=== PATIENT | female | born 2000 | race Caucasian/White ===

== ENCOUNTER → 2024-11-18 | Outpatient (CLI) | payer OTHER, SELFPAY ==
[2024-11-18 13:08] LABS: hCG Titer Quant., Serum < 1 mIU/mL (<9 non-preg)
== END | disposition home or self-care (01) ==
LOC: VSLAB 08:47
PROVIDERS: PCP Family Medicine; Visit Provider Family Medicine
DX: N91.0 Primary amenorrhea (principal)
CPT/HCPCS: 36415; 84702

== ENCOUNTER → 2025-02-21 | Outpatient (CLI) | payer OTHER, SELFPAY ==
[2025-02-24 07:07] LABS: Chlamydia By Nucleic Acid AMP Negative (Negative); Gonococcus By Nucleic Acid AMP Negative (Negative)
== END | disposition home or self-care (01) ==
LOC: LABSPEC 16:24
PROVIDERS: PCP Family Medicine; Visit Provider Obstetrics & Gynecology
DX: O09.90 Supervision of high risk pregnancy, unspecified, unspecified trimester (principal); Z3A.00 Weeks of gestation of pregnancy not specified
CPT/HCPCS: 87077; 87086; 87088; 87186; 87491; 87591

== ENCOUNTER → 2025-03-03 | Outpatient (CLI) | payer OTHER, SELFPAY ==
[2025-03-03 12:27] LABS: Hematocrit 39.0 % (37-47); Hemoglobin 13.5 g/dL (12.0-15.0); Immature Granulocytes Count 0.020 X10^3/uL (0.0-0.0); Mean Corp Hgb Conc 34.6 g/dL (32-36); Mean Corpuscular Volume 85.5 fL (81-99); Mean Platelet Vol. 10.1 fl (6.2-12.0); NRBC Flagged by Analyzer 0 % (0-5); Platelet Count 236 K/mm3 (150-450); RBC Distribution Width CV 11.7 % (11.6-14.6); RBC Distribution Width SD 36.1 fl (35.1-43.9); Red Blood Count 4.56 M/mm3 (4.2-5.4); White Blood Count 8.5 K/mm3 (4.4-11.0)
[2025-03-03 13:38] LABS: HIV Nonreactive (Nonreactive); Hepatitis B Surface Antigen Nonreactive (Nonreactive); Hepatitis C Antibody Nonreactive (Nonreactive); Syphilis Antibodies Nonreactive (Nonreactive)
--- OUTSIDE RECORDS SUMMARY | 2025-03-03 17:01 | XMS RPT_ITS | CCD ---
Author Organization [facility] Care Team Providers Care Systems Integration Analyst Name Role Phone Generic Provider MD, No Assigned Pcp Primary Car e Provider Unavailable ROMELIA AYALA Attending Unavailable GENERIC PROVIDER, NO ASSIGNED PCP Primary Care Unavailable ROMELIA AYALA Attending Unavailable GENERIC PROVIDER, NO ASSIGNED PCP Primary Care Unavailable Chanell Zavala DO Primary Care Provider Chanell Zavala DO Attending Provider Lucas VSC, Chanell Primary Care Unavailable Angelique Rm Attending Unavailabl e Lucas VSC, Chanell Referring Unavailable Lucas VSCChanell Attending Unavailable Lucas VSC, Chanell Primary Care Unavailable Lucas VSC, Chanell Primary Care Unavailable Angelique Rm Attending Unavailabl e Allergies Allergy Classification Reported Allergen(s) Allergy Type Date of Onset Reaction(s) Facility (3 sources) acellular pertussis vaccine, inactivated / diphtheria toxoid vaccine, inactivated / tetanus toxoid vaccine, inactivated; Translations: [DIPHTH,PERTUS( ACELL),TETANUS] Drug Allergy 4 Other [facility] (3 sources) Latex; Translations: [LATEX, NATURAL RUBBER] Drug Intolerance 0 Anaphylaxis, Hives, Shortness of breath [facility] Work Phone: (3 sources) strawberry allergenic extract; Translations: [STRAWBERRY] Drug Allergy 4 Unknown [facility] Work Phone: (1 source) natural latex rubber Drug allergy (disorder) 5 [facility] (1 source) Pertussis Vaccine Drug Allergy 5 [facility] (1 source) strawberry allergenic extract Drug Allergy [facility] Medications Current Medications Medication Drug Class(es) Dates Sig (Normalized) Sig (Original) no115/iron/folic acid ( 19 ORAL) (2 sources) take 1 tablet by tish th once daily no115/iron/folic acid ( 19 ORAL) Take 1 tablet by mouth once daily. Active Problems Active Problems Problem Classification Problem Date Documented Date Episodic/Chronic Asthma (1 source) Unspecified asthma, uncomplicated; Translations: [Unspecified asthma, uncomplicated] Onset: 02-21-2025 Chronic Contraceptive and procreative management (2 sources) Patient encounter status; Translations: [Encounter for removal of intrauterine contraceptive device] 03-24-2024 Episodic Genitourinary congenital anomalies (1 source) Arcuate uterus; Translations: [Arcuate uterus] Onset: 02-21-2025 Chronic Menstrual disorders (1 source) Primary amenorrhea; Translations: [Primary amenorrhea] Onset: 11-25-2024 Chronic Other complications of (1 source) Supervision of high risk , unspecified, unspecified trimester; Translations: [Supervision of high risk , unspecified, unspecified trimester] Onset: 02-21-2025 Episodic Other infections; including parasitic (1 source) Personal history of other infectious and parasitic diseases; Translations: [Personal history of other infectious and parasitic diseases] Onset: 02-21-2025 Episodic Other screening for suspected conditions (not mental disorders or infectious disease) (2 sources) Encounter for screening for malignant neoplasm of cervix; Translations: [Encounter for screening for malignant neoplasm of cervix] Onset: 07-28-2024 Episodic Residual codes; unclassified (1 source) 9 weeks gestation of ; Translations: [9 weeks gestation of ] Onset: 02-21-2025 Episodic Residual codes; unclassified (1 source) Other specified health status; Translations: [Other specified health status] Onset: 02-21-2025 Episodic Unclassified (2 sources) New Patient Visit; Translations: [New Patient Visit] Onset: 03-24-2024 Past or Other Problems Problem Classification Problem Date Documented Da te Episodic/Chronic Unclassified (2 sources) Onset: 03-24-2024 Resolved: 07-28-2024 03-24-2024 Results Test Name Value Interpretation Reference Range Facility Urine Cultureon 02-25-2025 [facility] #2 Below infection level. Strep anginosus Eunice Count 25,000-50,000 Mixed Gram Positive Organisms Mixed Gram Positive Organisms MIXC Mixed contaminants. Submit a new specimen if indicated. Strep anginosus: REACTION Ampicillin Islt SAMEER <=0.25 Penicillin G Islt SAMEER <=0.06 S Cefotaxime Islt SAMEER <=0.12 cefTRIAXone Islt SAMEER <=0.12 S Clindamycin Islt SAMEER <=0.25 S Linezolid Islt SAMEER <=2 S Vancomycin Islt SAMEER 0.5 S Normal [facility] Comment on above: Performed By: #### M 100.2200, L7000.1800 #### [facility] [address] [place], [address] Chlamydia/GC LEVI aptimaon CHLAMY,NUC ACID Negative Normal Negative [facility] Comment on above: Performed By: #### M 100.2200, L7000.1800 #### [facility] [address] [place], [address] GC BY NUC ACID Negative Normal Negative [facility] Comment on above: Result Comment: Perf ormed at: =G - [facility] [address] [id number] [employer] Supervisor: Gabbi Cameron MD, Phone: [phone] Performed By: #### M 100.2200, L7000.1800 #### [facility] [address] [place], [address] [facility] Office Visit Reporton 02-21-2025 [facility] Office Visit Report [facility] [address], [address] [place] [address] OFFICE VISIT Date of Service: 02/21/25 MR#: [id number] Acct: [id number] Name: JC RYDER Rep #: [id number] : 2000 Provider: Dr. Angelique Connelly DO Age/Sex: 24/F Location: [facility] Status: Signed Intake Vital Signs 02/21/25 14:28 Height 5 ft 10 in Weight: 173 lb 9 oz BMI 24.9 BP 117/80 Intake Visit Reasons: *NEW* NOB LMP 12/17, MICHAEL 09/23 Chief Complaint: New OB Gospel Singer Required: No Is patient in pain?: No Allergies Pertussis Vaccines Allergy (Intermediate, Verified 02/21/25 14:37) Other strawberry (strawberries) Allergy (Verified 02/21/25 14:37) Hives Latex, Natural Rubber Adverse Reaction (Severe, Verified 02/21/25 14:28) Anaphylaxis Medications ???Medication ???Instructions ???Recorded ???Confirmed ???Type albuterol 90 mcg/actuation aerosol See Rx Instructions inhalation 1 02/21/25 History inhaler .COMPLEX PRN multivit-min no.71-iron fum 28 cap PO 02/10/25 02/21/25 History mg-folate no.1 1 mg-dha 300 mg capsule (PNV-[place]) ondansetron HCl 4 mg tablet 4 mg PO Q8H 02/10/25 02/21/25 Hist ory ondansetron 4 mg disintegrating 4 mg PO Q6H PRN nausea and 5 02/21/25 Rx tablet vomiting #30 tabs Last Menstrual Period: 12/18/24 : No Have you fallen in the past year?: No PFSH PFSH Medical History Former smoker Surgical History H/O myringotomy Family History Maternal Grandfather Diabetes Maternal Grandmother Diabetes Breast cancer, Onset Age: 45 Great grandmother Uncle Cancer leukemia- childhood Social History adopted: No household members: significant other and children housing: house number of children: 1 service: No current occupational status: employed current occupation: [employer] current occupational exposures/hazards: Yes (But not going in certain rooms now.) pets and animals: No history of recent travel: No sexually active: Yes Smoking Status: Former smoker smoking status stop date: 06/22/20 quit status: quit date established alcohol intake: current alcohol intake frequency: holidays/special occasions only details: Not while substance use type: does not use well-balanced diet: daily or most days caffeine: No eating out: rarely or never during the past year weight has: remained stable what type of physical activity do you participate in: none brie/zoroastrian: Lutheran seatbelt use: always do you feel safe at home: Yes additional social history: Prakash Lawrence History 2 Elective abortions Hx Para 1 Spontaneous abortions Hx # Term Pregnancies 1 Ectopic pregnancies Hx # Pregnancies Multiple births # of living children 1 Past Pregnancies Del. Date Name GA/Weeks Outcome Route Bth Weight Gen Labor Lgth Anesthesia Del Locatn Provider FOB 02/04/21 [place] 39 live - full term 7#1oz Female epidural [facility] Delivery Date: 02/04/21 Last Updated by: Marisol Carson IOL, protein in urine? HPI *NEW* NOB LMP 12/17, MICHAEL 09/23 Details: JC RYDER is a 24 year old who presents for New OB visit. OB Visit MICHAEL Calculator Estimated Delivery Date Method Current WG Current Estimate 09/24/25 LMP (Certain) 9w 2d Other Estimates 09/22/25 Ultrasound #1 9w 4d Comments: HIV: Urine Culture: Sequential Screen: NIPT Screen: Estimated Due Date: 09/24/25 Expected Delivery Route/Plan Labor Preferences- CB/BF classes: [] labor support person: [] labor intervention preferences: [] pain management options preferred: [] cut cord/dad catch: [] : [] PP control planned: [] discussed possible routes of delivery and associated risks: [] special requests: [] Specific Issue/Plans Covid status: [] Flu vaccine: [] Tdap vaccine: [] Rhogam: [] LARC form signed: [] Problem list reviewed and updated with the most current plan of care details and appropriate orders placed. Relevant counseling for the gestational age provided. Continue routine care and follow up unless otherwise noted in visit notes/problem list details Initial Weight: Not Recorded Date -???-???-???-???-???- ???-???-???-???-???-? ??-???- EGA Weight BP Urine Prot -???-???-???-???-???- ???-???-???-???-???-? ??-???- Glucose FHR FuHt Pres Dilation -???-???-???-???-???- ???-???-???-???-???-? ??-???- Effaced St Visit Note 02/21/25 -???-???-???-???-???- ???-???-???-???-???-? ??-???- 9w 2d 173 lb 9 oz 117/80 -???-???-???-???-???- ?? (more content not included)... Normal [facility] Serum human chorionic gonado tropin detection for pregnancyOrdered By: Chanell Zavala on 11-18-2024 HCG ( test) Ql < 1 mIU/mL <9 [facility] Comment on above: Gestational Age0.2-1 Week: 5-50 mIU/mL1-2 Weeks: 50-500 mIU/mL2-3 Weeks: 100-5000 mIU/mL3-4 Weeks: 500-10,000 mIU/mL4-5 Weeks:1000-50,000 mIU/mL5-6 Weeks: 10,000-100,000 mIU/mL6-8 Weeks: 15,000-200,000 mIU/mL2-3 Months:10,000-100,000 mIU/mL hCG Titer Quant., Serumon HCG QUANT. < 1 Normal <9 non-preg [facility] Comment on above: Result Comment: Gest ational Age 0.2-1 Week: 5-50 mIU/mL 1-2 Weeks: 50-500 mIU/mL 2-3 Weeks: 100-5000 mIU/mL 3-4 Weeks: 500-10,000 mIU/mL 4-5 Weeks:1000-50,000 mIU/mL 5-6 Weeks: 10,000-100,000 mIU/mL 6-8 Weeks: 15,000-200,000 mIU/mL 2-3 Months:10,000-100,000 mIU/mL Performed By: #### L 700.8000 #### [facility] [address] [place], [address] Cervicalon 07-28-2024 Cytology Cervical or vaginal smear or scraping study Pathology report.total SEE COMMENT Gynecologic Cytology Case: [id number] Authorizing Provider: Romelia Ayala MD Collected: 07/28/2024 1022 Ordering Location: [facility] Received: 07/28/2024 1022 First Screen: LINCOLN Berrios Specimen: ThinPrep Liquid-Based Pap-Imaging System Screen, CERVIX, SCREENING Cytology study comment SEE COMMENT A. THINPREP PAP CERVIX, SCREENING - Specimen Adequacy Satisfactory for evaluation; endocervical/transfor mation zone component is present General Categorization Negative for intraepithelial lesion or malignancy. Descriptive Interpretation Negative for intraepithelial lesion or malignancy Specimen does not meet the requisition-stated criteria for HPV testing. See Pap test interpretation above. at 1029 EDT Laboratory comment SEE COMMENT Slide(s) initially screened by LINCOLN Berrios at [facility] [address] [facility] [facility] [address] By the signature on this report, the individual or group listed as making the Final Interpretation/Diagno sis certifies that they have reviewed this case. This specimen has been analyzed by the ThinPrep Imaging System ([employer] an automated imaging and review system, which assists the laboratory in evaluating cells on ThinPrep Pap tests. Following automated imaging, selected greene from every slide were reviewed by a welfare eligibility worker and/or pathologist. Cervical cytology is a screening procedure primarily for squamous cancers and precursors and has associated false-negative and false-positives results as evidenced by published data. Your patient's test should be interpreted in this context, together with the patient's history and clinical findings. Regular sampling and follow-up of unexplained clinical signs and symptoms are recommended to minimize false negative results. LAB AP HPV HR Reflex if ASCUS only LAB AP HPV GENOTYPE QUESTION Yes Date last menstrual period 07/03/2024 [facility] Ambulatory Vital Signs Date Time Vital Sign Value Performing Clinician Faci lity 07-28-2024 10:19-0400 Body height 177.8 cm Romelia Ayala MD Work Phone: [facility] 07-28-2024 10:19-0400 Body mass index (BMI) [Ratio] 23.32 kg/m2 Romelia Ayala MD Work Phone: [facility] 07-28-2024 10:19-0400 Body weight 73.71 kg Romelia Ayala MD Work Phone: [facility] 07-28-2024 10:19-0400 Diastolic blood pressure 66 mm[Hg] Romelia Ayala MD Work Phone: [facility] 07-28-2024 10:19-0400 Systolic blood pressure 104 mm[Hg] Romelia Ayala MD Work Phone: [facility] 03-24-2024 08:18-0500 Body height 177.8 cm Romelia Ayala MD Work Phone: [facility] 03-24-2024 08:18-0500 Body mass index (BMI) [Ratio] 22.53 kg/m2 Romelia Ayala MD Work Phone: [facility] 03-24-2024 08:18-0500 Body weight 71.22 kg Romelia Ayala MD Work Phone: [facility] 03-24-2024 08:18-0500 Diastolic blood pressure 64 mm[Hg] Romelia Ayala MD Work Phone: [facility] 03-24-2024 08:18-0500 Systolic blood pressure 106 mm[Hg] Romelia Ayala MD Work Phone: [facility] Encounters Encounter Date Encounter Type Care Provider Facility Start: 02-21-2025 ambulatory Chanell Lucas VSC Faci lity:[facility] Start: 02-21-2025 End: 02-21-2025 ambulatory Chanell Lucas VSC Facility[facility] Start: 11-18-2024 End: 11-18-2024 ambulatory Hcanell Lucas DO Work Phone: -laboratory [facility] Start: 11-18-2024 End: 11-18-2024 Patient encounter procedure Chanell Zavala DO -[facility] Start: 11-18-2024 End: 11-18-2024 ambulatory Chanell Zavala [facility] Facility:[facility] Start: 07-28-2024 End: 07-28-2024 ambulatory [facility] Ambulatory Start: 07-28-2024 End: 07-28-2024 Encounter for gynecological examination (general) (routine) without abnormal findings [facility] Start: 07-28-2024 End: 07-28-2024 Patient encounter procedure Romelia Ayala MD Work Phone: [facility] Start: 07-28-2024 End: 07-28-2024 Periodic preventive med est patient 18-39 yrs Romelia Ayala MD Work Phone: [facility] Comment on above: Encounter for annual routine gynecological examination; Encounter for screening for cervical cancer Start: 03-24-2024 End: 03-24-2024 ambulatory [facility] Ambulatory Start: 03-24-2024 End: 03-24-2024 Office outpatient new 45 minutes Romelia Ayala MD Work Phone: [facility] Comment on above: Encounter for IUD re moval (Primary Dx) Plan of Treatment Date Care Activity Detail Author Start: 2050 Zoster Vaccines (1 o f 2) Zoster Vaccines (1 of 2) [facility] Start: 08-01-2025 End: 08-01-2025 Patient encounter procedure 08/01/2025 1:00 PM EDT [facility] [address] [place] [address] [facility] [address] [facility] [place] [address] [facility] Start: 12-20-2024 Influenza vaccination Influenz a Vaccine (Season Ended) [facility] Start: 07-28-2024 End: 07-28-2025 Cytology Cervical or vaginal smear or scraping study [facility] Service Area Work Phone: Comment on above: Expected: 07/28/2024 (Approximate), Expires: 07/28/2025 Start: 07-28-2024 End: 07-28-2024 Patient encounter procedure 07/28/2024 10:00 AM EDT Office Visit [facility] [address] [place] [id number] Romelia Ayala MD [address] [facility] [address] [place] [address] [facility] Start: 12-21-2023 COVID-19 Vaccine ( season) COVID-19 Vaccine ( season) [facility] Start: 12-21-2023 Influenza vaccination Influenza Vacc ine (#1) [facility] Start: 2021 Screening for malign ant neoplasm of cervix [facility] Start: 2019 Pneumococcal Vaccine : Pediatrics and At-Risk Adult Patients (1 of 2 - PCV) Pneumococcal Vaccine: Pediatrics and At-Risk Adult Patients (1 of 2 - PCV) [facility] Start: 2018 Hepatitis C screening Hepatitis C [facility] Start: 2011 DTaP/Tdap/Td Vaccine s (6 - Tdap) DTaP/Tdap/Td Vaccines (6 - Tdap) [facility] Start: 2000 Lipid panel Lipid Panel [facility] Start: 2000 Yearly Adult Physical Yearly Adult P hysical [facility] Immunizations Immunization Date Immunization Notes Care Provider Fa cility 01-25-2021 influenza virus vaccine, unspecified formulation Romelia Ayala MD Work Phone: [facility] Work Phone: Payers Date Payer Category Payer Self-pay 2020 Managed Care (Private) [employer] [facility] [id number] 2020 Private Health Insurance [id number] 2000 Unknown [id number] 2000 Unknown [id number] Unknown [id number] Unknown [id number] Unknown [id number] Social History Date Type Detail Facility Start: 03-24-2024 Tobacco smoking status NHIS Never smoked tobacco [facility] Work Phone: Start: 03-24-2024 Tobacco use and exposure Smokeless tobacco non-user [facility] Work Phone: Start: 03-24-2024 End: 07-28-2024 Alcoholic beverage intake Ex-drinker (finding) [facility] Work Phone: Start: 03-24-2024 End: 07-28-2024 History of Social function [facility] Work Phone: Start: 03-24-2024 End: 07-28-2024 Tobacco use panel [facility] Work Phone: Start: 2000 Sex assigned at Not on file [facility] Work Phone: Start: 03-14-2024 End: 07-28-2024 Exposure to SARS-CoV-2 (event) Not sure [facility] Within the last year , have you been afraid of your partner or ex-partner? No [facility] Work Phone: How often to you hav e a drink containing alcohol? Monthly or less [facility] Work Phone: How many standard dr inks containing alcohol do you have on a typical day? 1 or 2 [facility] Work Phone: How often do you hav e 6 or more drinks on 1 occasion? Never [facility] Work Phone: Do you feel stress - tense, restless, nervous, or anxious, or unable to sleep at night because your mind is troubled all the time - these days [OSQ] Not at all [facility] Work Phone: (I/We) worried chidi er (my/our) food would run out before (I/we) got money to buy more. Never true [facility] Work Phone: In the past 12 month s, has lack of transportation kept you from medical appointments or from getting medications? No [facility] Work Phone: Tobacco smoking stat [facility] Unknown if ever smoked [facility] Work Phone: Start: 2000 Sex Assigned At Female [facility] History of Present illness Narrative 07-28-2024 Romelia Ayala MD - 07/28/2024 10:00 AM EDT Note Date & Type Note Facility 07-28-2024 History of Present illness Narrative Jc Ryder is a 24 y.o. female who is here for a routine exam. PCP = No Assigned PCP Generic Provider, Chief Complaint Patient presents with Gynecologic Exam Patient is here for yearly exam and pap test. Patient does not do regular self breast exams. Patient has some questions regarding a vaginal pinching feeling she has when she uses a certain machine when she works out. LMP: 07/03/24. Presents for annual exam. She voices no complaints and is doing well. Denies any bowel or bladder problems. Denies any breast problems. Had questions regarding a pinching sensation in the vaginal area when she uses certain workout machine at the gym. She had the ParaGard removed in March 2024. She is not using anything for contraception as she is planning on trying to conceive in the near future. OB History 1 Para 1 Term 1 0 AB 0 Living 1 SAB 0 IAB 0 Ectopic 0 Multiple 0 Live Births 1 Social History Substance and Sexual Activity Sexual Activity Yes Partners: Male control/protection: None Current contraception: None History reviewed. No pertinent past medical history. Past Surgical History: Procedure Laterality Date MIDDLE EAR SURGERY 2012 Past med hx and past surg hx reviewed and notable for: none Review of Systems: Constitutional: No fever or chills Respiratory: No shortness of breath, or cough Cardiovascular: No chest pain or syncope Breasts: No breast pain, no masses, no nipple discharge Gastrointestinal: No nausea, vomiting, or diarrhea, no abdominal pain Genitourinary: No dysuria or frequency Gynecology: Negative except as noted in history of present illness All other: All other systems reviewed and negative for complaint Objective BP 104/66 Ht 1.778 m (5' 10) Wt 73.7 kg (162 lb 8 oz) LMP 07/03/2024 BMI 23.32 kg/m PHYSICAL EXAMINATION: Medical Billing Service present for exam: Angelique Ríos LPN Well-developed, well nourished, in no acute distress, alert and oriented x three, is pleasant and cooperative. HEENT: Clear. Pupils equal, round and reactive to light and accommodation. Extraocular muscles are intact. Oral mucosa pink without exudate. NECK: No lymphadenopathy, no thyromegaly. BREASTS: Symmetric, no palpable masses. No nipple discharge or retraction. LUNGS: Clear bilaterally. HEART: Regular rate and rhythm without murmurs. ABDOMEN: Normoactive bowel sounds, soft and nontender, no guarding or rebound tenderness, no CVA tenderness. EXTREMITIES: No clubbing, cyanosis or edema. NEUROLOGIC: Cranial nerves II-XII grossly intact. : Normal external female genitalia, normal vulva, normal vagina. Normal urethral meatus, urethra and bladder. Normal appearing cervix. Normal-sized uterus, no adnexal masses or tenderness. Pap smear performed today. Actions performed during this visit include: - Clinical breast exam - Clinical pelvic exam - No orders of the defined types were placed in this encounter. Problem List Items Addressed This Visit None Visit Diagnoses Encounter for annual routine gynecological examination Relevant Orders THINPREP PAP TEST Encounter for screening for cervical cancer Relevant Orders THINPREP PAP TEST Provider Impression: 1. Annual She was reassured that today's pelvic exam is normal. Uncertain as to the etiology for the pinching sensation she has when she uses a certain workout machine at the gym that requires her to be in a reclined sitting position. Most likely the pinching sensation may be more musculoskeletal in nature. Thank you for coming to your annual exam. Your findings during the exam were normal. Please return for your next visit in 1 year. documented in this encounter [facility] Work Phone: History of Present illness Narrative 03-24-2024 Romelia Ayala MD - 03/24/2024 8:00 AM EST Note Date & Type Note Facility 03-24-2024 History of Present illness Narrative Jc Ryder is a 23 y.o. year old female patient. PCP = No Assigned PCP Generic Provider, Chief Complaint Patient presents with New Patient Visit New patient here to have IUD removed. Patient would like to conceive. LMP: 02/28/24 HPI Presents in she was to have the ParaGard IUD removed because she desires to try to conceive in the near future. She had the ParaGard placed approximately several weeks after her delivery in 2020. She denies any breast problems. Denies any bowel or bladder concerns. OB History 1 Para 1 Term 1 0 AB 0 Living 1 SAB 0 IAB 0 Ectopic 0 Multiple 0 Live Births 1 History reviewed. No pertinent past medical history. Past Surgical History: Procedure Laterality Date MIDDLE EAR SURGERY 2012 Review of Systems: Constitutional: No fever or chills Respiratory: No shortness of breath, or cough Cardiovascular: No chest pain or syncope Breasts: No breast pain, no masses, no nipple discharge Gastrointestinal: No nausea, vomiting, or diarrhea, no abdominal pain Genitourinary: No dysuria or frequency Gynecology: Negative except as noted in history of present illness All other: All other systems reviewed and negative for complaint Medication Documentation Review Audit Reviewed by Romelia Ayala MD (Physician) on 03/24/24 at 0828 Medication Order Taking? Sig Documenting Provider Last Dose Status no115/iron/folic acid ( 19 ORAL) [id number] Take 1 tablet by mouth once daily. Historical Provider, Active BP 106/64 Ht 1.778 m (5' 10) Wt 71.2 kg (157 lb) LMP 02/28/2024 (Exact Date) BMI 22.53 kg/m PHYSICAL EXAMINATION: Medical Billing Service present for exam: Angelique Ríos LPN Well-developed, well nourished, in no acute distress, alert and oriented x three, is pleasant and cooperative. HEENT: Clear. Pupils equal, round and reactive to light and accommodation. Extraocular muscles are intact. Oral mucosa pink without exudate. NECK: No lymphadenopathy, no thyromegaly. LUNGS: Clear bilaterally. HEART: Regular rate and rhythm without murmurs. ABDOMEN: Normoactive bowel sounds, soft and nontender, no guarding or rebound tenderness, no CVA tenderness. EXTREMITIES: No clubbing, cyanosis or edema. NEUROLOGIC: Cranial nerves II-XII grossly intact. : Normal external female genitalia, normal vulva, normal vagina. Normal urethral meatus, urethra and bladder. Normal appearing cervix. IUD string seen at the cervix. IUD was removed intact. Normal-sized uterus, no adnexal masses or tenderness. Problem List Items Addressed This Visit None Visit Diagnoses Encounter for IUD removal - Primary Provider Impression: 1. IUD removal Patient encouraged to use condoms for 1 to 2 months prior to trying to conceive. Patient to return in 4 months for annual exam and Pap. documented in this encounter [facility] Work Phone: Evaluation note Note Date & Type Note Facility Evaluation note Diagnosis Encounter for IUD removal- Primary documented in this encounter [facility] Work Phone: Evaluation note Note Date & Type Note Facility Evaluation note Diagnosis Encounter for annual routine gynecological examination Encounter for screening for cervical cancer documented in this encounter [facility] Work Phone: Evaluation note Note Date & Type Note Facility Evaluation note No assessment information availa ble [facility] Work Phone: Reason for referral (narrative) Note Date & Type Note Facility Reason for referral (narrative) No reason for referral information available [facility] Work Phone: Summary Purpose Family History No Family History Records FoundNo Family History Records Found Advance Directives No Advanced Directives Records FoundNo Advanced Directives Records Found Additional Source Comments Reason for Visit (unrecogniz ed section and content) Reason Comments New Patient Visit New patient here to have IUD removed. Patient would like to conceive. LMP: 02/28/24 Reason Comments Gynecologic Exam Patient is here for yearly exam and pap test. Patient does not do regular self breast exams. Patient has some questions regarding a vaginal pinching feeling she has when she uses a certain machine when she works out. LMP: 07/03/24. Care Teams (unrecognized sec tion and content) Systems Integration Analyst Relationship Specialty Start Date End Date Generic Provider, [place] [address] PCP - General Backup Operator 03/24/24 Systems Integration Analyst Relationship Specialty Start Date End Date Generic Provider, [place] [address] PCP - General Backup Operator 03/24/24 Team Status: Active Member Role/Relationship Status Dates Chanell ZHANG DO Primary Care Provider Active Team Status: Inactive Member Role/Relationship Status Dates Chanell ZHANG DO Primary Care Provider Active Start: November 18, 2024 End: November 18, 2024 Chanell ZHANG DO Attending Provider Active Start: November 18, 2024 End: November 18, 2024 INFORMATION SOURCE (unrecogn ized section and content) DATE CREATED AUTHOR 08/12/2024 [facility] DATE CREATED AUTHOR AUTHOR'S ORGANIZ ATION 02/27/2025 [facility] Goals (unrecognized section and content) Goals may be documented in a n alternate section FOR RECORDS PERTAINING TO PATIENTS WHO ARE OR HAVE BEEN ENROLLED IN A CHEMICAL DEPENDENCY/SUBSTANCEABUSE PROGRAM, SOME INFORMATION MAY BE OMITTED. This clinical summary was aggregated from multiple sources. Caution should be exercised in using it in the provision of clinical care. This summary normalizes information from multiple sources, and as a consequence, information in this document may materially change the coding, format and clinical context of patient data. In addition, data may be omitted in some cases. CLINICAL DECISIONS SHOULD BE BASED ON THE PRIMARY CLINICAL RECORDS. [facility] [facility]. provides no warranty or guarantee of the accuracy or completeness of information in this document.
== END | disposition home or self-care (01) ==
PROVIDERS: PCP Family Medicine; Visit Provider Obstetrics & Gynecology
DX: O09.91 Supervision of high risk pregnancy, unspecified, first trimester (principal); Z3A.00 Weeks of gestation of pregnancy not specified; Z78.9 Other specified health status
CPT/HCPCS: 36415; 85025; 86703; 86762; 86780; 86787; 86803; 86850; 86900; 86901; 87340

== ENCOUNTER → 2025-03-04 | Outpatient (CLI) | payer OTHER, SELFPAY ==
--- NOTE | 2025-03-04 14:03 | US_ITS ---
PROCEDURE: TRANSVAGINAL W/PREG US 03/04/2025 REASON FOR EXAM: THREATENED TECHNIQUE: Procedure Code: [id number] Modality: US Procedure: TRANSVAGINAL W/PREG US COMPARISON: None FINDINGS: Comments: Number of Gestational Sacs: 1 Gestational Sac Shape: Normal Number of Fetuses: 1 Heart Rate: 164 beats per minute (average) Survey of Visible Anatomic Structures: Grossly unremarkable for gestational age. Yolk Sac: Present and unremarkable. Placenta: Presently not well-visualized Amniotic Fluid Volume: Subjectively normal for gestational age. Uterine Abnormalities: Maternal uterus is unremarkable. Ovaries / Adnexa: Both maternal ovaries are visualized and unremarkable. The ovaries are not visualized. DIMENSIONS: Parameter Measurement / EGA [place] Rump Length: 4.5 mm/11 weeks and 1 day Gestational Sac: 6.6 cm/13 weeks and 0 days Yolk Sac: 6 mm/ ESTIMATED GESTATIONAL AGE: By Ultrasound: 12 weeks and 1 day By LMP: 10 weeks and 6 days ESTIMATED DATE OF DELIVERY: By Ultrasound: September 15, 2025 By LMP: September 24, 2025 US/Transvaginal w/Preg US IMPRESSION: Single live intrauterine gestation with a mean gestational age of 12 weeks and 1 day. Reading Location: [place] [id number]
--- OUTSIDE RECORDS SUMMARY | 2025-03-04 16:29 | XMS RPT_ITS | CCD ---
Author Organization [facility] Care Team Providers Care Intensive Care Nurse Name Role Phone Generic Provider MD, No Assigned Pcp Primary Car e Provider Unavailable ROMELIA AYALA Attending Unavailable GENERIC PROVIDER, NO ASSIGNED PCP Primary Care Unavailable ROMELIA AYALA Attending Unavailable GENERIC PROVIDER, NO ASSIGNED PCP Primary Care Unavailable LucasChanell chowdhury DO Primary Care Provider Chanell Zavala DO Attending Provider Lucas VSC, Chanell Primary Care Unavailable Lucas VSC, Chanell Attending Unavailable Lucas VSC, Chanell Primary Care Unavailable Angelique Rm Attending Unavailabl e Angelique Rm Attending Unavailabl e Lucas VSC, Chanell Primary Care Unavailable Lucas VSC, Chanell Primary Care Unavailable Lucas VSC, Chanell Referring Unavailable Angelique Rm Attending Unavailabl e Allergies Allergy Classification Reported Allergen(s) Allergy Type Date of Onset Reaction(s) Facility (3 sources) acellular pertussis vaccine, inactivated / diphtheria toxoid vaccine, inactivated / tetanus toxoid vaccine, inactivated; Translations: [DIPHTH,PERTUS( ACELL),TETANUS] Drug Allergy 4 Other [facility] (3 sources) Latex; Translations: [LATEX, NATURAL RUBBER] Drug Intolerance 0 Anaphylaxis, Hives, Shortness of breath [facility] Work Phone: (3 sources) strawberry allergenic extract; Translations: [STRAWBERRY] Drug Allergy 4 Unknown [facility] Work Phone: (1 source) natural latex rubber Drug allergy (disorder) 5 [facility] (1 source) Pertussis Vaccine Drug Allergy 5 [facility] (1 source) strawberry allergenic extract Drug Allergy [facility] Medications Current Medications Medication Drug Class(es) [...] amenorrhea] Onset: 11-25-2024 Chronic Other complications of (2 sources) Supervision of high risk , unspecified, unspecified trimester; Translations: [Supervision of high risk , unspecified, unspecified trimester] Onset: 03-02-2025 Episodic Other infections; including parasitic (1 source) Personal history of other infectious and parasitic diseases; Translations: [Personal history of other infectious and parasitic diseases] Onset: 02-21-2025 Episodic Other screening for suspected conditions (not mental disorders or infectious disease) (2 sources) Encounter for screening for malignant neoplasm of cervix; Translations: [Encounter for screening for malignant neoplasm of cervix] Onset: 07-28-2024 Episodic Residual codes; unclassified (2 sources) Other specified health status; Translations: [Other specified health status] Onset: 02-21-2025 Episodic Residual codes; unclassified (1 source) 9 weeks gestation of ; Translations: [9 weeks gestation of ] Onset: 02-21-2025 Episodic Unclassified (2 sources) New Patient Visit; Translations: [New Patient Visit] Onset: 03-24-2024 Past or Other Problems Problem Classification Problem Date Documented Da te Episodic/Chronic Unclassified (2 sources) Onset: 03-24-2024 Resolved: 04-09-2025 12-04-2024 Results Test Name Value Interpretation Reference Range Facil ity CBC W/Diff, Automatedon 11-1 -2024 Absolute Lymph 1.92 X10 3/uL Normal 0.83-4.51 [facility] Comment on above: Performed By: #### L 3890.6301, L900.0098, BTS, L509.8002, L3890.6006, L509.4006, L100.0100, L3890.6102 #### [facility] [address] [place], [address] Absolute Neut 6.0 X10 3/uL Normal 2.0-7.7 [facility] Comment on above: Performed By: #### L 3890.6301, L900.0098, BTS, L509.8002, L3890.6006, L509.4006, L100.0100, L3890.6102 #### [facility] [address] [place], [address] Basophils/100 WBC (Bld) 0.5 % Normal 0-1 [facility] Comment on above: Performed By: #### L 3890.6301, L900.0098, BTS, L509.8002, L3890.6006, L509.4006, L100.0100, L3890.6102 #### [facility] [address] [place], [address] Eosinophils/100 WBC (Bld) 1.2 % Normal 0-5 [facility] Comment on above: Performed By: #### L 3890.6301, L900.0098, BTS, L509.8002, L3890.6006, L509.4006, L100.0100, L3890.6102 #### [facility] [address] [place], [address] Erythrocyte distribution width (RBC) [Ratio] 11.7 % Normal 11.6-14.6 [facility] Comment on above: Performed By: #### L 3890.6301, L900.0098, BTS, L509.8002, L3890.6006, L509.4006, L100.0100, L3890.6102 #### [facility] [address] [place], [address] Hematocrit (Bld) [Volume fraction] 39.0 % Normal 37-47 [facility] Comment on above: Performed By: #### L 3890.6301, L900.0098, BTS, L509.8002, L3890.6006, L509.4006, L100.0100, L3890.6102 #### [facility] [address] [place], [address] Hemoglobin (Bld) [Mass/Vol] 13.5 g/dL Normal 12.0-15.0 [facility] Comment on above: Performed By: #### L 3890.6301, L900.0098, BTS, L509.8002, L3890.6006, L509.4006, L100.0100, L3890.6102 #### [facility] [address] [place], [address] IG% 0.200 Normal 0.0-0.9 [facility] Comment on above: Result Comment: IG% - Immature Granulocytes (promyelocytes, myelocytes and metamyelocytes) > 1% indicates that a LEFT SHIFT is Present. Performed By: #### L 3890.6301, L900.0098, BTS, L509.8002, L3890.6006, L509.4006, L100.0100, L3890.6102 #### [facility] [address] [place], [address] Lymphocytes/100 WBC (Bld) 22.5 % Normal 19-41 [facility] Comment on above: Performed By: #### L 3890.6301, L900.0098, BTS, L509.8002, L3890.6006, L509.4006, L100.0100, L3890.6102 #### [facility] [address] [place], [address] MCH (RBC) [Entitic mass] 29.6 pg Normal 27.0-32.0 [facility] Comment on above: Performed By: #### L 3890.6301, L900.0098, BTS, L509.8002, L3890.6006, L509.4006, L100.0100, L3890.6102 #### [facility] [address] [place], [address] MCHC (RBC) [Mass/Vol] 34.6 g/dL Normal 32-36 [facility] Comment on above: Performed By: #### L 3890.6301, L900.0098, BTS, L509.8002, L3890.6006, L509.4006, L100.0100, L3890.6102 #### [facility] [address] [place], [address] MCV (RBC) [Entitic vol] 85.5 fL Normal 81-99 [facility] Comment on above: Performed By: #### L 3890.6301, L900.0098, BTS, L509.8002, L3890.6006, L509.4006, L100.0100, L3890.6102 #### [facility] [address] [place], [address] Monocytes/100 WBC (Bld) 5.0 % Normal 0-10 [facility] Comment on above: Performed By: #### L 3890.6301, L900.0098, BTS, L509.8002, L3890.6006, L509.4006, L100.0100, L3890.6102 #### [facility] [address] [place], [address] Neutrophils/100 WBC (Bld) 70.6 % High 47-70 [facility] Comment on above: Performed By: #### L 3890.6301, L900.0098, BTS, L509.8002, L3890.6006, L509.4006, L100.0100, L3890.6102 #### [facility] [address] [place], [address] Nucleated RBC (Bld) [#/Vol] 0 10*3/uL Normal 0-5 [facility] Comment on above: Performed By: #### L 3890.6301, L900.0098, BTS, L509.8002, L3890.6006, L509.4006, L100.0100, L3890.6102 #### [facility] [address] [place], [address] Platelet mean volume (Bld) [Entitic vol] 10.1 fL Normal 6.2-12.0 [facility] Comment on above: Performed By: #### L 3890.6301, L900.0098, BTS, L509.8002, L3890.6006, L509.4006, L100.0100, L3890.6102 #### [facility] [address] [place], [address] Platelets (Bld) [#/Vol] 236 10*3/uL Normal 150-450 [facility] Comment on above: Performed By: #### L 3890.6301, L900.0098, BTS, L509.8002, L3890.6006, L509.4006, L100.0100, L3890.6102 #### [facility] [address] [place], [address] RBC (Bld) [#/Vol] 4.56 10*6/uL Normal 4.2-5.4 [facility] Comment on above: Performed By: #### L 3890.6301, L900.0098, BTS, L509.8002, L3890.6006, L509.4006, L100.0100, L3890.6102 #### [facility] [address] [place], [place], [address] RDW SD 36.1 fl Normal 35.1-43.9 [facility] Comment on above: Performed By: #### L 3890.6301, L900.0098, BTS, L509.8002, L3890.6006, L509.4006, L100.0100, L3890.6102 #### [facility] [address] [place], [address] WBC (Bld) [#/Vol] 8.5 10*3/uL Normal 4.4-11.0 [facility] Comment on above: Performed By: #### L 3890.6301, L900.0098, BTS, L509.8002, L3890.6006, L509.4006, L100.0100, L3890.6102 #### [facility] [address] [place], [address] HIVon 03-03-2025 HIV Non-Reactive Normal Nonreactive [facility] Comment on above: Result Comment: Non- Reactive Reactive Repeatedly reactive samples must be confirmed according to CDC recommended confirmatory algorithms. The subresults for either HIVAG or AHIV can be used as an aid in the selection of the confirmation algorithm for reactive samples. Send out specimens with Reactive results to [facility] for confirmation. Order the HIV antibody detection and differentiation: [id number] Performed By: #### L 3890.6301, L900.0098, BTS, L509.8002, L3890.6006, L509.4006, L100.0100, L3890.6102 #### [facility] [address] [place], [address] Hepatitis C Antibodyon 03-03 Hepatitis C Ab Non-Reactive Normal Nonreactive [facility] Comment on above: Result Comment: Reac tive: Presumptive evidence of antibodies to HCV. Follow CDC recommendations for supplemental testing. Non-Reactive: Antibodies to HCV were not detected; does not exclude the possibility of exposure to HCV Reactive Results are presumptive evidence of antibodies to HCV. Follow CDC recommendations for supplemental testing. Order confirmation testing: HCV Quant by PCR testing - HCVPCR #[id number] Non Reactive: < 0.8 Equivocal: >/= 0.8 to < 1.0 Reactive: >/= 1.0 The [facility] requires that a reactive/equivocal HCV antibody result be sent out for confirmation. HCV Quant by PCR testing. Performed By: #### L 3890.6301, L900.0098, BTS, L509.8002, L3890.6006, L509.4006, L100.0100, L3890.6102 #### [facility] [address] [facility] [place], [place], [address] L3890.6102on 03-03-2025 HEP B Surf Ag Non-Reactive Normal Nonreactive [facility] Comment on above: Result Comment: Reac tive: Presumptive evidence of HBV. Repeatedly reactive samples must be confirmed using a neutralization test ([facility] Isotopess HBsAg Confirmatory Test) Non-Reactive: HBsAg not detected; does not exclude the possibility of exposure to HBV Performed By: #### L 3890.6301, L900.0098, BTS, L509.8002, L3890.6006, L509.4006, L100.0100, L3890.6102 #### [facility] [address] [facility] [place], [address] L509.4006on 03-03-2025 Rubella IgG Non-Reactive Normal Nonreactive [facility] Comment on above: Result Comment: Anti body Result: Interpretation Non-Reactive: Non-Immune Reactive: Immune The following results were obtained with the [employer] Rubella IgG assay. Results from assays of other manufacturers cannot be used interchangeably. Performed By: #### L 3890.6301, L900.0098, BTS, L509.8002, L3890.6006, L509.4006, L100.0100, L3890.6102 #### [facility] [address] [place], [address] NATERAon 03-03-2025 NATURA SEE SCANNED REPORT Normal [facility] Comment on above: Order Comment: Comme nts: NIPT With Gender carrier testing Performed By: #### L 3890.6301, L900.0098, BTS, L509.8002, L3890.6006, L509.4006, L100.0100, L3890.6102 #### [facility] [address] [place], [address] Syphilis Antibodieson 2024 Syphilis Abs Non-Reactive Normal Nonreactive [facility] Comment on above: Performed By: #### L 3890.6301, L900.0098, BTS, L509.8002, L3890.6006, L509.4006, L100.0100, L3890.6102 #### [facility] [address] [place], [address] Type AND Screenon 03-03-2025 Ab SCREEN GEL Negative Normal [facility] Comment on above: Order Comment: PN Performed By: #### L 3890.6301, L900.0098, BTS, L509.8002, L3890.6006, L509.4006, L100.0100, L3890.6102 #### [facility] [address] [place], [address] Urine Cultureon 02-25-2025 URC #2 Below infection level. Strep anginosus [place] Count 25,000-50,000 Mixed Gram Positive Organisms Mixed Gram Positive Organisms MIXC Mixed contaminants. Submit a new specimen if indicated. Strep anginosus: REACTION Ampicillin Islt SAMEER <=0.25 Penicillin G Islt SAMEER <=0.06 S Cefotaxime Islt SAMEER <=0.12 cefTRIAXone Islt SAMEER <=0.12 S Clindamycin Islt SAMEER <=0.25 S Linezolid Islt SAMEER <=2 S Vancomycin Islt SAMEER 0.5 S Normal [facility] Comment on above: Performed By: #### L 3890.6301, L900.0098, BTS, L509.8002, L3890.6006, L509.4006, L100.0100, L3890.6102 #### [facility] [address] [place], [place], [address] Chlamydia/GC LEVI aptimaon CHLAMY,NUC ACID Negative Normal Negative [facility] Comment on above: Performed By: #### L 3890.6301, L900.0098, BTS, L509.8002, L3890.6006, L509.4006, L100.0100, L3890.6102 #### [facility] [address] [place], [place], [id number] GC BY NUC ACID Negative Normal Negative [facility] Comment on above: Result Comment: Perf ormed at: =G - [facility] [address] [id number] Freight Receiver: Gabbi Cameron MD, Phone: [phone] Performed By: #### L 3890.6301, L900.0098, BTS, L509.8002, L3890.6006, L509.4006, L100.0100, L3890.6102 #### [facility] [address] [place], [place], [address] Highway Landscape Architect Office Visit Reporton 02-21-2025 Highway Landscape Architect Office Visit Report [facility] [address], [address] [place] [address] OFFICE VISIT Date of Service: 02/21/25 MR#: [id number] Acct: [id number] Name: JC RYDER Rep #: [id number] : 2000 Provider: Dr. 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: No Is patient in pain?: No [...] mg-folate no.1 1 mg-dha 300 mg capsule (PNV-[place]) ondansetron HCl 4 mg tablet 4 mg [...] No current occupational status: employed current occupation: [employer] current occupational exposures/hazards: Yes (But not going [...] physical activity do you participate in: none brie/roman catholic: Pentecostal seatbelt use: always do you feel safe at home: Yes additional social history: Prakash Lawrence History 2 Elective abortions Hx Para 1 Spontaneous abortions Hx # Term Pregnancies 1 Ectopic pregnancies Hx # Pregnancies Multiple births # of living children 1 Past Pregnancies Del. Date Name GA/Weeks Outcome Route Bth Weight Gen Labor Lgth Anesthesia Del Locatn Provider FOB 02/04/21 [place] 39 live - full term 7#1oz Female epidural [place] Delivery Date: 02/04/21 Last Updated by: Marisol [...] list details Initial Weight: Not Recorded Date -???-???-???-???-??? -???-???-???-???-??? -???-???- EGA Weight BP Urine Prot -???-???-???-???-??? -???-???-???-???-??? -???-???- Glucose FHR FuHt Pres Dilation -???-???-???-???-??? -???-???-???-???-??? -???-???- Effaced St Visit Note 02/21/25 -???-???-???-???-??? -???-???-???-???-??? -???-???- 9w 2d 173 lb 9 oz 117/80 -???-???-???-???-??? -?? (more content not included)... Normal [facility] Serum human chorionic gonado tropin detection for pregnancyOrdered By: Chanell Zavala on 11-18-2024 HCG ( test) Ql < 1 mIU/mL <9 [facility] Comment on above: Gestational Age0.2-1 Week: 5-50 mIU/mL1-2 Weeks: 50-500 mIU/mL2-3 Weeks: 100-5000 mIU/mL3-4 Weeks: 500-10,000 mIU/mL4-5 Weeks:1000-50,000 mIU/mL5-6 Weeks: 10,000-100,000 mIU/mL6-8 Weeks: 15,000-200,000 mIU/mL2-3 Months:10,000-100,000 mIU/mL hCG Titer Quant., Serumon HCG QUANT. < 1 Normal <9 non-preg [facility] Comment on above: Result Comment: Gest ational Age 0.2-1 Week: 5-50 mIU/mL 1-2 Weeks: 50-500 mIU/mL 2-3 Weeks: 100-5000 mIU/mL 3-4 Weeks: 500-10,000 mIU/mL 4-5 Weeks:1000-50,000 mIU/mL 5-6 Weeks: 10,000-100,000 mIU/mL 6-8 Weeks: 15,000-200,000 mIU/mL 2-3 Months:10,000-100,000 mIU/mL Performed By: #### L 700.8000 #### [facility] [address] [place], [address] Cervicalon 07-28-2024 Cytology Cervical or vaginal smear or scraping study Pathology report.total SEE COMMENT Gynecologic Cytology Case: [id number] Authorizing Provider: Romelia Ayala MD Collected: 07/28/2024 1022 Ordering Location: [facility] Received: 07/28/2024 1022 First Screen: LINCOLN Berrios Specimen: ThinPrep Liquid-Based Pap-Imaging System Screen, CERVIX, SCREENING Cytology study comment SEE COMMENT A. THINPREP PAP CERVIX, SCREENING - Specimen Adequacy Satisfactory for evaluation; endocervical/transfo rmation zone component is present General Categorization Negative for intraepithelial lesion or malignancy. Descriptive Interpretation Negative for intraepithelial lesion or malignancy Specimen does not meet the requisition-stated criteria for HPV testing. See Pap test interpretation above. at 1029 EDT Laboratory comment SEE COMMENT Slide(s) initially screened by LINCOLN Berrios at [facility] [address] [facility] [id number] By the signature on this report, the individual or group listed as making the Final Interpretation/Diagn osis certifies that they have reviewed this case. This specimen has been analyzed by the ThinPrep Imaging System ([employer] an automated imaging and review system, which assists the laboratory in evaluating cells on ThinPrep Pap tests. Following automated imaging, selected greene from every slide were reviewed by a mutual funds agent and/or pathologist. Cervical cytology is a screening [...] QUESTION Yes Date last menstrual period 07/03/2024 [facility]ulatory Vital Signs Date Time Vital Sign Value Performing Clinician Faci lity 07-28-2024 10:19-0400 Body height 177.8 cm Romelia Ayala MD Work Phone: [facility] 07-28-2024 10:19-0400 Body mass index (BMI) [Ratio] 23.32 kg/m2 Romelia Ayala MD Work Phone: [facility] 07-28-2024 10:19-0400 Body weight 73.71 kg Romelia Ayala MD Work Phone: [facility] 07-28-2024 10:19-0400 Diastolic blood pressure 66 mm[Hg] Romelia Ayala MD Work Phone: [facility] 07-28-2024 10:19-040 Systolic blood pressure 104 mm[Hg] Romelia Ayala MD Work Phone: [facility] 03-24-2024 08:18-0500 Body height 177.8 cm Romelia Ayala MD Work Phone: [facility] 03-24-2024 08:18-0500 Body mass index (BMI) [Ratio] 22.53 kg/m2 Romelia Ayala MD Work Phone: [facility] 03-24-2024 08:18-0500 Body weight 71.22 kg Romelia Ayala MD Work Phone: [facility] 03-24-2024 08:18-0500 Diastolic blood pressure 64 mm[Hg] Romelia Ayala MD Work Phone: [facility] 03-24-2024 08:18-0500 Systolic blood pressure 106 mm[Hg] Romelia Ayala MD Work Phone: [facility] Encounters Encounter Date Encounter Type Care Provider Facility Start: 03-03-2025 ambulatory Angelique Rudolphty:[facility] Start: 02-21-2025 End: 02-21-2025 ambulatory Chanell Zavala [facility] Facility:[facility] [place] Start: 02-21-2025 End: 02-21-2025 ambulatory Chanell Zavala VS Facility:[facility] Start: 11-18-2024 End: 11-18-2024 ambulatory Chanell Zavala DO Work Phone: -[facility] Start: 11-18-2024 End: 11-18-2024 Patient encounter procedure Chanell Zavala DO -[facility] Start: 11-18-2024 End: 11-18-2024 ambulatory Chanell Zavala [facility] Facility:[facility] Start: 07-28-2024 End: 07-28-2024 ambulatory [facility] Start: 07-28-2024 End: 07-28-2024 Encounter for gynecological examination (general) (routine) without abnormal findings [facility] Start: 07-28-2024 End: 07-28-2024 Patient encounter procedure Romelia Ayala MD Work Phone: [facility] Start: 07-28-2024 End: 07-28-2024 Periodic preventive med est patient 18-39 yrs Romelia Ayala MD Work Phone: [facility] Comment on above: Encounter for annual routine gynecological examination; Encounter for screening for cervical cancer Start: 03-24-2024 End: 03-24-2024 ambulatory [facility] Start: 03-24-2024 End: 03-24-2024 Office outpatient new 45 minutes Romelia Ayala MD Work Phone: [facility] Comment on above: Encounter for IUD re moval (Primary Dx) Plan of Treatment Date Care Activity Detail Author Start: 2050 Zoster Vaccines (1 o f 2) Zoster Vaccines (1 of 2) [facility] Start: 08-01-2025 End: 08-01-2025 Patient encounter procedure 08/01/2025 1:00 PM EDT [facility] [address] [place] [id number] Romelia Ayala MD [address] [facility], [address] [place] [address] [facility] Start: 12-20-2024 Influenza vaccination Influenz a Vaccine (Season Ended) [facility] Start: 07-28-2024 End: 07-28-2025 Cytology Cervical or vaginal smear or scraping study [facility] Service Area Work Phone: Comment on above: Expected: 07/28/2024 (Approximate), Expires: 07/28/2025 Start: 07-28-2024 End: 07-28-2024 Patient encounter procedure 07/28/2024 10:00 AM EDT Office Visit [facility] [address] [place] [id number] Romelia Ayala MD [address] [facility], [address] [place] [id number] [facility] Start: 12-21-2023 COVID-19 Vaccine ( season) COVID-19 Vaccine ( season) [facility] Start: 12-21-2023 Influenza vaccination Influenza Vacc ine (#1) [facility] Start: 2021 Screening for malign ant neoplasm of cervix [facility] Start: 2019 Pneumococcal Vaccine : Pediatrics and At-Risk Adult Patients (1 of 2 - PCV) Pneumococcal Vaccine: Pediatrics and At-Risk Adult Patients (1 of 2 - PCV) [facility] Start: 2018 Hepatitis C screening Hepatitis C [facility] Start: 2011 DTaP/Tdap/Td Vaccine s (6 - Tdap) DTaP/Tdap/Td Vaccines (6 - Tdap) [facility] Start: 2000 Lipid panel Lipid Panel [facility] Start: 2000 Yearly Adult Physical Yearly Adult P [facility] Immunizations Immunization Date Immunization Notes Care Provider Fa cility 01-25-2021 influenza virus vaccine, unspecified formulation Romelia Ayala MD Work Phone: [facility] Work Phone: Payers Date Payer Category Payer Self-pay 2020 Managed Care (Private) [facility] PL[facility] [id number] 2020 Private Health Insurance [id number] 2000 Unknown [id number] 2000 Unknown [id number] Unknown [id number] Unknown [id number] Unknown [id number] Unknown [id number] Social History Date Type Detail Facility Start: 03-24-2024 Tobacco smoking status NHIS Never smoked tobacco [facility] Work Phone: Start: 03-24-2024 Tobacco use and exposure Smokeless tobacco non-user [facility] Work Phone: Start: 03-24-2024 End: 07-28-2024 Alcoholic beverage intake Ex-drinker (finding) [facility] Work Phone: Start: 03-24-2024 End: 07-28-2024 History of Social function [facility] Work Phone: Start: 03-24-2024 End: 07-28-2024 Tobacco use panel [facility] Work Phone: Start: 2000 Sex assigned at Not on file [facility] Work Phone: Start: 03-14-2024 End: 07-28-2024 Exposure to SARS-CoV-2 (event) Not sure [facility] Within the last year , have you been afraid of your partner or ex-partner? No [facility] Work Phone: How often to you hav e a drink containing alcohol? Monthly or less [facility] Work Phone: How many standard dr inks containing alcohol do you have on a typical day? 1 or 2 [facility] Work Phone: How often do you hav e 6 or more drinks on 1 occasion? Never [facility] Work Phone: Do you feel stress - tense, restless, nervous, or anxious, or unable to sleep at night because your mind is troubled all the time - these days [OSQ] Not at all [facility] Work Phone: (I/We) worried wheth er (my/our) food would run out before (I/we) got money to buy more. Never true [facility] Work Phone: In the past 12 month s, has lack of transportation kept you from medical appointments or from getting medications? 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 documented in this encounter [facility] Work Phone: History of Present illness Narrative 03-24-2024 Romelia Ayala MD - 03/24/2024 8:00 AM EST Note Date & Type Note Facility 03-24-2024 History of Present illness Narrative Jc Ryder is a 23 y.o. year old female patient. PCP = No Assigned PCP Generic ProviderMD Chief Complaint Patient presents with New Patient [...] Dose Status no115/iron/folic acid ( 19 ORAL) [id number] Take 1 tablet by mouth once daily. 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 documented in this encounter [facility] Work Phone: Evaluation note Note Date & Type Note Facility Evaluation note Diagnosis Encounter for IUD removal- Primary documented in this encounter [facility] Work Phone: Evaluation note Note Date & Type Note Facility Evaluation note Diagnosis Encounter for annual routine gynecological examination Encounter for screening for cervical cancer documented in this encounter [facility] Work Phone: Evaluation note Note Date & Type Note Facility Evaluation note No assessment information availa ble [facility] Work Phone: Reason for referral (narrative) Note Date & Type Note Facility Reason for referral (narrative) No reason for referral information available [facility] Work Phone: Summary Purpose Family History No [...] Care Teams (unrecognized sec tion and content) Intensive Care Nurse Relationship Specialty Start Date End Date Generic Provider, [place] [address] 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 - 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 03/24/24 Intensive Care Nurse Relationship Specialty Start Date End Date Generic Provider, No [place] [address] PCP - 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.] BE BASED ON THE PRIMARY CLINICAL RECORDS. [facility] [facility]. provides no warranty or guarantee of the accuracy or completeness of information in this document.
== END | disposition home or self-care (01) ==
LOC: US 14:01
PROVIDERS: PCP Family Medicine; Referring Provider Obstetrics & Gynecology; Visit Provider Obstetrics & Gynecology
DX: O20.0 Threatened abortion (principal); Z3A.00 Weeks of gestation of pregnancy not specified
CPT/HCPCS: 76817